=== PATIENT | female | born 1960 | race Caucasian/White ===

== ENCOUNTER 2016-11-14 13:26 | Outpatient (CLI) | payer BC, OTHER ==
--- NOTE | 2016-11-14 16:02 | CT ---
CT OF THE CHEST WITHOUT CONTRAST 11/14/16 COMPARISON: None. HISTORY: CT of the shoulder found a lung nodule. COMPARISON: CT of the left shoulder 07/13/16. TECHNIQUE: Multiple contiguous axial images were obtained in a CT of the chest without contrast. Coronal reform ats were performed. FINDINGS: The heart is normal in size without focal cardiac abnormality. Calcifications are seen in the zhang ry arteries. No hilar or mediastinal lymphadenopathy are seen. No pneumothorax or pleural effusion are present. There is an area of opacity in the posterior aspect of the left upper lobe nears the major fissure. This may represent atelectasis and appears less pro minent on the prior exam. This also could have represented an infiltrate which is resolving. No othe r pulmonary nodules are seen. There is a hypodensity in the left lobe of the liver which likely represents a cyst. The other visua lized subdiaphragmatic structures are unremarkable. Degenerative changes are seen in the spine. IMPRESSION: Opacity in the left upper lobe may represent atelectasis or resolving infiltrate. This appears small er than prior exam making a neoplasm less likely. POS: FERN
== END 2016-11-14 13:27 | disposition home or self-care (01) ==
LOC: CT 13:26
PROVIDERS: ATTEND Internal Medicine
DX: R91.1 Solitary pulmonary nodule (principal); R91.8 Other nonspecific abnormal finding of lung field
CPT/HCPCS: 71250

== ENCOUNTER 2019-03-12 14:58 | Outpatient (CLI) | payer MEDICARE ==
--- NOTE | 2019-03-12 15:52 | MMO ---
Bilateral MAMMO Bilat Screen [facility]. CLINICAL HISTORY: Patient is 59 years old and is seen for screening. VIEWS: The views performed were: bilateral craniocaudal with tomosynthesis and bilateral mediolateral oblique with tomosynthesis. FILMS COMPARED: The present examination has been compared to prior imaging studies performed at [facility] on 11/17/2013 and 10/12/2015. This study has been interpreted with the assistance of computer-aided detection. MAMMOGRAM FINDINGS: The breasts are almost entirely fat. Finding 1: There are stable benign appearing calcifications seen in both breasts. Finding 2: There is a stable round mass measuring 4 millimeters with circumscribed margins seen in the outer region of the right breast. There are no suspicious masses, suspicious calcifications, or new areas of architectural distortion. IMPRESSION: THERE IS NO MAMMOGRAPHIC EVIDENCE OF MALIGNANCY. A ROUTINE FOLLOW-UP MAMMOGRAM IN 1 YEAR IS RECOMMENDED. THE RESULTS OF THIS EXAM WERE SENT TO THE PATIENT. ACR BI-RADS Category 2 - Benign finding MAMMOGRAPHY NOTE: 1. A negative mammogram report should not delay a biopsy if a dominant of clinically suspicious mass is present. 2. Approximately 10% to 15% of breast cancers are not detected by mammography. 3. Adenosis and dense breasts may obscure an underlying neoplasm. Reported by: DAVID DUGGAN MD Electonically Signed: [id number]
== END 2019-03-12 14:59 | disposition home or self-care (01) ==
LOC: BICMAMMO 14:58
PROVIDERS: ATTEND Family Medicine
DX: Z12.31 Encounter for screening mammogram for malignant neoplasm of breast (principal)
CPT/HCPCS: 77063; 77067

== ENCOUNTER 2019-03-14 08:51 | Outpatient (CLI) | payer MEDICARE ==
--- NOTE | 2019-03-14 11:56 | RAD ---
Upper GI air contrast Small bowel exam HISTORY: Dysphagia. Abdomen pain. FINDINGS: There are contrast and single column barium evaluation shows a very small sliding hiatal he rnia. There is diminished primary and secondary peristalsis of the stomach with moderate nonpropulsive tertiary type contractions. Esophagus is somewhat patulous without internal filling def ect. Moderate amount of gastroesophageal reflux evident. A 12 mm barium tablet traversed the esophagus without holdup. The stomach and duodenum have a normal appearance. Small bowel mucosa unremarkable. The right colon w as reached 15 minutes. Terminal ileum and appendix unremarkable. Diverticula of the colon are apparent without adjacent inflammation. IMPRESSION: Small sliding hiatal hernia with small to moderate amount of gastroesophageal reflux. Mod erate presbyesophagus. No evidence of esophageal stricture. Rapid small bowel transit. Diverticulosis.
== END 2019-03-14 08:52 | disposition home or self-care (01) ==
LOC: RAD 08:51
PROVIDERS: ATTEND Family Medicine
DX: R13.10 Dysphagia, unspecified (principal); K44.9 Diaphragmatic hernia without obstruction or gangrene; K21.9 Gastro-esophageal reflux disease without esophagitis; K22.8 Other specified diseases of esophagus; K57.30 Diverticulosis of large intestine without perforation or abscess without bleeding
CPT/HCPCS: 74246

== ENCOUNTER 2023-01-26 12:41 | Outpatient (CLI) | payer MEDICARE | END 2023-01-26 12:42 | disposition home or self-care (01) | LOC: SCSRAD 12:41 | PROVIDERS: ATTEND Family Medicine | DX: M25.511 Pain in right shoulder (principal); R91.1 Solitary pulmonary nodule | CPT/HCPCS: 71046 ==